=== PATIENT | male | born 1975 | race Caucasian/White ===

== ENCOUNTER 2019-11-18 07:29 | Emergency (ER) | payer MEDICAID ==
[~2019-11-18] VITALS: Ht 165.1 cm; Wt 84.0 kg
[2019-11-18] MEDS ORDERED: HYDROCODONE/ACETAMINOPHEN 5/325MG TABLET PO ONE (08:30)
[2019-11-18] MEDS ORDERED: BACITRACIN 15GM TUBE TOP ONE (09:30)
[2019-11-18 10:32] VITALS: BP 144/88
== END 2019-11-18 10:34 | disposition home or self-care (01) ==
LOC: ER 07:29
DX: S02.2XXA Fracture of nasal bones, initial encounter for closed fracture (principal); S09.90XA Unspecified injury of head, initial encounter; S69.92XA Unspecified injury of left wrist, hand and finger(s), initial encounter; Y04.0XXA Assault by unarmed brawl or fight, initial encounter; Y93.89 Activity, other specified; Y92.89 Other specified places as the place of occurrence of the external cause; Y99.8 Other external cause status
CPT/HCPCS: 70486; 71045; 73130; 99285

== ENCOUNTER 2024-11-18 10:41 | Emergency (ER) | payer SELFPAY ==
[~2024-11-18] VITALS: Ht 170.2 cm; Wt 73.0 kg
[2024-11-18 10:42] VITALS: O2SAT 98
[2024-11-18] MEDS: TETANUS, DIPHTHERIA, PERTUSSIS VAC/PF 0.5ML (>10YR OLD) IM ONE (11:14)
[2024-11-18 11:24] LABS: BASOPHILS % 0.6 % (0.0-2.0); EOSINOPHILS % 0.8 % (0.0-5.0); HEMATOCRIT. 43.1 % (42.0-52.0); HEMOGLOBIN. 14.3 g/dL (14.0-18.0); LYMPHOCYTES % 20.3 % (20.0-50.0); MEAN CORPUSCULAR HGB CONC 33.1 g/dL (31.0-37.0); MEAN CORPUSCULAR VOLUME 87.5 fL (80.0-94.0); MEAN PLATELET VOLUME 9.2 fl (7.4-10.4); MONOCYTES % 10.2 % (2.0-8.0); NEUTROPHILS % 68.1 % (40.0-76.0); PLATELET 220 x1000/uL (130-400); RED BLOOD CELL COUNT 4.92 mill/uL (4.7-6.1); RED CELL DISTRIBUTION WIDTH 14.1 % (11.6-14.6); WHITE BLOOD COUNT 5.9 x1000/uL (4.5-11.0)
[2024-11-18 11:31] LABS: CHLORIDE 99 mEq/L (98-107); POTASSIUM 4.5 mEq/L (3.5-5.1); SODIUM 131 mEq/L (136-145)
[2024-11-18 11:32] LABS: CALCIUM 9.7 mg/dL (8.7-10.4); CARBON DIOXIDE 24 mEq/L (21-32)
[2024-11-18 11:37] LABS: CREATININE 1.2 mg/dL (0.6-1.3); UREA NITROGEN BLOOD 18 mg/dL (9-23)
[2024-11-18] MEDS ORDERED: AMOX1TAB16 MT (11:44)
[2024-11-18] MEDS: BACITRACIN ZINC OINT UDPKT TOP ONE (11:52)
[2024-11-18 11:53] LABS: GLUCOSE 642 mg/dL (70-105)
[2024-11-18] MEDS: INSULIN REGULAR (HUMULIN R) 1000UNITS/10ML VIAL IV ONE (12:00)
[2024-11-18 12:08] LABS: BETA HYDROXYBUTYRATE 0.7 mMol/L (0.0-0.3)
[2024-11-18 13:14] VITALS: BP 142/79; PULSE 69; RESP 16; TEMP 36.9; O2SAT 96
== END 2024-11-18 13:20 | disposition home or self-care (01) ==
LOC: ER 10:41
DX: S70.312A Abrasion, left thigh, initial encounter (principal); E11.65 Type 2 diabetes mellitus with hyperglycemia; W54.0XXA Bitten by dog, initial encounter; Y93.89 Activity, other specified; Y92.89 Other specified places as the place of occurrence of the external cause; Y99.8 Other external cause status
CPT/HCPCS: 99284; 96374; 80048; 82010; 82962; 85025; 36415; 73552; 90715; 90471; J1815